=== PATIENT | female | born 1940 | race Caucasian/White ===

== ENCOUNTER 2019-03-10 10:07 | Emergency (ER) | payer OTHER ==
[~2019-03-10] VITALS: Ht 175.3 cm; Wt 68.0 kg
[2019-03-10 10:45] VITALS: BP_SYST 145
--- NOTE | 2019-03-10 11:25 | NUR ---
Patient to ER bed 3 to gown for evaluation. Side rails up. Assumed care. 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
--- NOTE | 2019-03-10 11:30 | NUR ---
Patient arrived via POV, AAOx4, and with daughter at bedside. Patient c/c of right ankle swelling. 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 Patient was seen at urgent care and states they did not see a DVT, when she spoke to her doctor and was encouraged to come and get evaluated in ED. Patient states she has chronic edema to left ankle. +2 pulses noted to bilateral lower extremities. Patient denies shortness of breath, or chest pain.
[2019-03-10] MEDS ORDERED: NACL 0.9% 1,000 ML IV ONE (11:32)
--- NOTE | 2019-03-10 11:36 | NUR ---
ER at bedside examining patient.
[2019-03-10 12:34] LABS: BASOPHILS # (AUTO) 0.1 K/uL (0.0-0.2); BASOPHILS % (AUTO) 1.1 % (0.0-2.0); EOSINOPHILS # (AUTO) 0.1 K/uL (0.0-0.4); EOSINOPHILS % (AUTO) 0.8 % (0.0-4.0); HEMATOCRIT 35.8 % (36-48); HEMOGLOBIN 11.6 g/dL (12.0-16.0); LYMPHOCYTES # (AUTO) 1.4 K/uL (1.0-5.5); LYMPHOCYTES % (AUTO) 20.9 % (20.5-51.5); MEAN CORPUSCULAR HEMOGLOBIN 28 pg (27-31); MEAN CORPUSCULAR HGB CONC 32 % (32-36); MEAN CORPUSCULAR VOLUME 86 fL (79.0-98.0); MONOCYTES # (AUTO) 0.5 K/uL (0.0-1.0); MONOCYTES % (AUTO) 7.5 % (1.7-9.3); NEUTROPHILS # (AUTO) 4.8 K/uL (1.8-7.7); NEUTROPHILS % (AUTO) 69.7 % (40.0-70.0); PLATELET COUNT (AUTO) 286 K/uL (130-430); RED BLOOD CELL COUNT(AUTO) 4.17 MIL/uL (4.2-6.2); RED CELL DISTRIBUTION WIDTH 17.2 % (9.0-15.0); WHITE BLOOD COUNT (AUTO) 6.9 K/uL (4.8-10.8)
[2019-03-10 13:00] LABS: ANION GAP 8 (5-15); CALCIUM 9.3 mg/dL (8.4-11.0); CHLORIDE 98 mmol/L (98-107); CREATININE 1.11 mg/dL (0.55-1.30); GLUCOSE 107 mg/dL (70-99); POTASSIUM 3.9 mmol/L (3.5-5.1); SODIUM SERUM 132 mmol/L (136-145); UREA NITROGEN, BLOOD 16 mg/dL (8-21)
[2019-03-10 13:02] LABS: PROTHROMBIN TIME 20.2 SECS (9.5-12.5)
[2019-03-10 13:04] LABS: ALANINE AMINOTRANSFERASE 18 U/L (12-78); ALBUMIN 3.4 g/dL (3.4-4.8); AMYLASE 107 U/L (0-100); ASPARTATE AMINOTRANSFERASE 23 U/L (10-37); LIPASE 366 U/L (73-393); TOTAL BILIRUBIN 0.3 mg/dL (0.0-1.0)
[2019-03-10 13:28] LABS: CKMB RELATIVE INDEX 9.8 (0.0-2.9); CREATINE KINASE MB 28.9 ng/mL (0-3.6)
[2019-03-10 14:27] VITALS: BP_SYST 152
== END 2019-03-10 14:27 | disposition home or self-care (01) ==
LOC: SED 10:07
DX: L97.319 Non-pressure chronic ulcer of right ankle with unspecified severity (principal); R22.41 Localized swelling, mass and lump, right lower limb; R94.31 Abnormal electrocardiogram [ECG] [EKG]
CPT/HCPCS: 80053; 82150; 82550; 82553; 83880; 83690; 85025; 85379; 85610; 85730; 87040; 84484; 36415; 93005; 71045; 93971; 99284; 83605; J7030